=== PATIENT | male | born 1965 | race Caucasian/White ===

== ENCOUNTER → 2016-05-26 | Day surgery (SDC) | payer BC ==
[2016-05-23 09:06] VITALS: BMI 26.6
--- NOTE | 2016-05-25 08:38 | SC.ANESEVA ---
Anesthesia Eval & Plan ([facility]) - Providers Stated Procedure: Left knee scope Surgeon:: Jose Ybarra - Medications/Allergies Allergies: Allergies No Known Allergies Allergy (Verified 05/23/16 08:58) Home Medications: Home Medication List Meloxicam [Mobic] 15 mg PO DAILY 05/23/16 [History] Promethazine [Phenergan] 25 mg PO Q6 PRN 05/23/16 [History] Tramadol HCl [Ultram] 1 - 2 tabs PO Q6 PRN 05/23/16 [History] Current Medication List: Reviewed - Focused Physical Exam NPO since: Since after Midnight Mallampati: Class I Thyromental Distance: Greater than 3 Neck: Full Range of Motion Dental: Normal - no significant findings Cardiovascular/Chest: Normal (RRR no mumurs or rubs.) Respiratory: Lungs clear. negative: Wheezing Any problems with anesthesia, including nausea and vomiting?: No Any relatives with a history of Malignant Hyperthermia?: No Prone to Motion Sickness: No Other: Diagnoses UNILATERAL PRIMARY OSTEOARTHRITIS, LEFT KNEE (05/26/16) PAIN IN LEFT KNEE (05/26/16) OTH TEAR OF MEDIAL MENISCUS, CURRENT INJURY, LEFT KNEE, INIT (05/26/16) Problem List Problem Status Onset Abdominal pain Acute Acute on chronic respiratory failure Acute Cholecystitis with cholelithiasis Acute Cholelithiasis Acute Postoperative ileus Acute UTI (lower urinary tract infection) Acute GERD (gastroesophageal reflux disease) Chronic Nicotine addiction Chronic Allergies Allergy/AdvReac Type Severity Reaction Status Date / Time No Known Allergies Allergy Verified 05/23/16 08:58 Home Medications Medication Instructions Recorded Last Taken Type Oxycodone HCl [Oxycodone Immediate 1 - 2 tabs PO .Q4-6 PRN 04/04/14 04/04/14 04: 30 History Release Capsule] Meloxicam [Mobic] 15 mg PO DAILY 05/23/16 Unknown History Promethazine [Phenergan] 25 mg PO Q6 PRN 05/23/16 Unknown History Tramadol HCl [Ultram] 1 - 2 tabs PO Q6 PRN 05/23/16 Unknown History Height and Weight Patient's height 6 ft 1.5 in Patient's weight 92.986 kg Weight (Calculated Kilograms) 92.986 BMI 26.6 - Anesthetic Plan Anesthesia Type: General ASA Class: 3 - Focused Review of Systems Cardiac History: Yes: Hx Cardiac Disorders, Hx Abnormal Cholesterol/ Hyperlipidemia HEENT: Yes: Hx Vision Problem (wears contacts), Other HEENT Problems Respiratory: Yes: Hx Emphysema, Hx Sleep Apnea Gastrointestinal: Yes: Hx Gastroesophageal Reflux Disease, Hx Gastrointestinal Disorders Neurological/Musculoskeletal: Yes: Hx Migraine, Hx Neurological Disorders Smoking Status: Heavy tobacco smoker (5 or more cigarettes/day or daily pipe/ cigar) Surgical History: Yes: Cholecystectomy
[~2016-05-26] MED LIST: BUPIVACAINE 0.25%-EPINEPHRINE 1:200,000 30 ML INF ONE; DEXAMETHASONE 4 MG/ML VIAL IV PRN; DEXAMETHASONE 4 MG/ML VIAL ONE; DIAZEPAM 5 MG TAB PO PRN; FENTANYL 100 MCG/2 ML VIAL IV PRN; FENTANYL 100 MCG/2 ML VIAL ONE; HYDROCODONE 5 MG/ACETAMIN 325 MG TAB PO PRN; KETOROLAC TROMETH 30 MG/ML VIAL IV PRN; KETOROLAC TROMETH 30 MG/ML VIAL ONE; LABETALOL 20 MG/4 ML SYRINGE IV PRN; LR 1,000 ML IV ONE; LR 1,000 ML IV SCH; MIDAZOLAM 2 MG/2 ML VIAL ONE; NS 1,000 ML IV SCH; NS 250 ML IV SCH; ONDANSETRON HCL 4 MG/2 ML VIAL IV PRN; ONDANSETRON HCL 4 MG/2 ML VIAL ONE; PROPOFOL 200 MG/20 ML VIAL IV ONE; SCOPOLAMINE TRANSDERMAL PATCH TOP PRN; hydrALAZINE 20 MG/ML VIAL IV PRN
--- NOTE | 2016-05-26 11:43 | PCM.DCS92 ---
Discharge Outpatient Note Additional Instructions: Instructions given: 05/26/16 Prescriptions (given at the office) Diet as tolerated Discharge Instructions: * Apply ice to the surgical site for 15-20 minutes out of each hour while awake for the first 2 days post-op, then apply as often as needed to control swelling and pain * Elevate the surgical extremity while sitting or lying down * Keep Bandage clean and dry * May shower after Physical Therapy appointment * Take stool softener while taking pain medication * Ambulate weight bearing as tolerated * No Driving until cleared Follow up in office as scheduled - Call office for any additional concerns. ([phone]) Follow up with Physical therapy as scheduled
[2016-05-26 13:02] VITALS: BP 119/76; PULSE 70; TEMP 97.2
--- NOTE | 2016-05-26 13:31 | HIMOP ---
DATE OF PROCEDURE: 05/26/2016 PREOPERATIVE DIAGNOSIS: Medial meniscus tear of left knee and osteoarthritis of left knee. POSTOPERATIVE DIAGNOSES: Medial and lateral meniscal tears of left knee, chondromalacia of femur, and synovitis. OPERATIONS: Subtotal medial and lateral meniscectomy of left knee. Chondroplasty of femur, synovectomy. SURGEON: Jose Ybarra MD PERSONNEL ASSOCIATE: Nesha Doyle PA-C. ANESTHESIA: General. DRAINS: None. BLOOD LOSS: None. COMPLICATIONS: None. DISPOSITION: Stable to recovery. PROCEDURE IN DETAIL: The patient was taken back to the surgical suite, where general anesthesia was induced. The left knee was examined, noted to be ligamentously stable. A tourniquet was applied to the left thigh, but it was not inflated. The left thigh was positioned in the leg su. The knee and leg were prepped and draped in the standard sterile fashion. The #11 blade was used to establish a lateral parapatellar joint line portal, through which the arthroscopy, trocar, and cannula were introduced into the knee joint. The knee was insufflated with sterile saline solution using an arthroscopy pump. The arthroscope was introduced. The medial gutter was initially visualized. No pathology was noted. The medial compartment was then visualized. There were severe degenerative changes medially with areas of grade 4 chondromalacia involving the medial and weightbearing aspect of the medial tibial plateau as well as the weightbearing portion of the medial femoral condyle. There was a degenerative complex tear of the medial meniscus extending from the posterior horn to the flank. Using a variety of jen and a radiofrequency wand, a subtotal medial meniscectomy was performed. The intercondylar notch area was visualized. ACL and PCL have some degenerative changes, but were noted to be intact. The lateral compartment was visualized. There was a degenerative-appearing posterior horn tear of the lateral meniscus shaver was used to perform a subtotal lateral meniscectomy of this area. The remainder of the lateral meniscus appeared normal, it was probed and noted to be intact. The articular surfaces laterally were in good condition. The lateral gutter showed no pathology. The patellofemoral joint was visualized. There was significant synovitis impinging in the patellofemoral joint and a synovectomy was performed. There was a grade 4 chondral defect, approximately 1 x 1 cm in dimension involving the lateral facet of the femoral trochlea approximately. This was surrounded by some grade 3 changes. Chondroplasty was performed of the grade 3 areas with shaver. The patella displayed some grade 1 and 2 degenerative changes with central tracking. There was no sign of any patellar malalignment. The suprapatellar pouch displayed no pathology. The arthroscopic instruments were then removed. The 2 portals were injected subcutaneously with 0.25% Marcaine with epinephrine 20 mL of which was injected intra-articularly. Each portal was closed with one 4-0 Prolene suture. Sterile dressings were applied and an Michel wrap. The patient was extubated and taken to the recovery room in stable condition. He tolerated the procedure well without immediate complications. [id number]
--- NOTE | 2016-05-26 13:38 | SC.ANESPOS ---
Post-Anesthesia Note LOC: Fully Awake Post-Anesthesia Assessment: Awake, Returned to Baseline, Hemodynamically Stable , Pain Control Adequate Phase I & II Recovery Complete: Yes Apparent Anesthesia Complication: No : N - Vital Signs Blood Pressure: 119/76 Pulse: 70 Resp Rate: 14 O2 Sat: 95 Temp: 97.2 F
== END ==
LOC: CPSC 10:52
PROVIDERS: ATTEND Orthopaedic Surgery
PROC: 0SBD4ZZ Excision of Left Knee Joint, Percutaneous Endoscopic Approach (ICD-10-PCS; principal; 2016-05-26 11:45)
DX: S83.242A Other tear of medial meniscus, current injury, left knee, initial encounter (principal); S83.282A Other tear of lateral meniscus, current injury, left knee, initial encounter; M94.262 Chondromalacia, left knee; M65.862 Other synovitis and tenosynovitis, left lower leg; M17.0 Bilateral primary osteoarthritis of knee; E78.5 Hyperlipidemia, unspecified; J43.9 Emphysema, unspecified; G47.30 Sleep apnea, unspecified; K21.9 Gastro-esophageal reflux disease without esophagitis; G43.909 Migraine, unspecified, not intractable, without status migrainosus; F32.9 Major depressive disorder, single episode, unspecified; F17.210 Nicotine dependence, cigarettes, uncomplicated; Z79.899 Other long term (current) drug therapy; X58.XXXA Exposure to other specified factors, initial encounter
CPT/HCPCS: 29880; J1100; J1885; J2250; J2405; J2704; J3010; J3490